=== PATIENT | male | born 1985 | race African-American/Black ===

== ENCOUNTER 2016-11-29 08:11 | Emergency (ER) | payer SELFPAY ==
[2016-11-29 08:36] VITALS: BP 156/67; PULSE 99; TEMP 98.1; BMI 41.5
--- NOTE | 2016-11-29 09:03 | EDPRACDOC ---
- General Information Chief Complaint: Wound Stated Complaint: FINGER SWELLING Time Seen by Provider: 11/29/16 08:53 Information Source: Patient Home Medications: Home Medications Cephalexin Monohydrate [Keflex] 500 mg PO QID #28 cap 11/29/16 Allergies/Adverse Reactions: Allergies Allergy/AdvReac Type Severity Reaction Status Date / Time No Known Allergies Allergy Verified 11/29/16 08:38 - History of Present Illness Onset: 2 DAYS HPI: Pt states he bites his finger nails and for 2 days his R 5th finger is red swollen and painful. R hand dominate. Denies fever, red streaking. Location: Reports: Right, 5th Finger Dominant Hand: Right Mechanism: Reports: Spontaneous Circumstances: Reports: Other (nail bitting) Tetanus Up To Date?: No Associated Signs & Symptoms: Reports: None ED Past Medical History - History Reviewed Yes Nurses notes reviewed and agree except as marked - Patient Medical History Psychological History: Denies: Depression - Social Medical History Smoking Status: Heavy tobacco smoker (5 or more cigarettes/day or daily pipe/ cigar) Social History: Reports: Cocaine Use, Marijuana Use ETOH: Social Substance Abuse: Illicit Drugs EDM Review of Systems - Review of Systems Constitutional: No Symptoms Reported. negative: Fever, Chills, Weakness, Fatigue, Loss of Appetite Respiratory: No Symptoms Reported. negative: Cough, Brassy Cough, Barky Cough, Shortness of Breath, Wheezing, Hemoptysis Cardiovascular: No Symptoms Reported. negative: Chest Pain, Palpitations, Syncope, Edema, Orthopnea, PND, Skin Mottling, Cyanosis Neurological: No Symptoms Reported. negative: Headache, Dizziness, Seizure, Numbness, Weakness, Speech Difficulty, Gait Difficulty Musculoskeletal: Other (finger) Integumentary: Wound Allergic/Immunologic: No Symptoms Reported. negative: Hives, Itching Hematologic: No Symptoms Reported. negative: Lymphadenopathy, Easy Bruising, Easy Bleeding Psychiatric: No Symptoms Reported. negative: Anxiety, Depression, Hallucinations, Insomnia, Suicidal - Physical Exam Constitutional: No apparent distress, Alert Oriented to: Time, Person, Place Last recorded Vital Signs: Last Vital Signs Temp 98.1 F 11/29/16 08:31 Pulse 99 11/29/16 08:31 Resp 20 11/29/16 08:31 BP 156/67 11/29/16 08:31 Pulse Ox 96 11/29/16 08:31 Oxygen Pulse Oxygen Saturation 96 O2 Device Oxygen Flow Rate Fraction of Inspired Oxygen ( FIO2) - HEENT Head: Normal ( normocephalic) - Respiratory/Cardiovascular Respiratory: Normal - CTA (BBS clear to auscultation without adventitious sounds ) Cardiovascular: Normal (RRR without murmur, gallop or rub) - Musculoskeletal Extremities: Normal (Normal tone, Pulses 2+ No cyanosis or edema, FROM) - Integumentary Skin: Normal, Warm, Dry Lymphatics: Normal (no adenopathy) - Neurologic Memory Impaired: Normal Motor Function: Normal (Normal tone, Pulses 2+ No cyanosis or edema, FROM) Mood Description: Normal Perception: Normal ED Hand Problem Physical Exam - Musculoskeletal Hand: Normal Wrist: Normal Digit: Swelling (5th distal finger R) Digit Strength: Normal Nail: Normal Nailbed: Normal Soft Tissue: Tender, Red, Swelling, Paronychia Distal Function/Circulation: Normal - Integumentary Skin: Swelling, Pustule, Red Lymphatics: Normal - Other Exam Hands Image: 1 - swelling, red with pustule ED Procedures - Incision and Drainage Informed of risks, benefits and alternatives described.: Yes Informed Consent Signed: Verbal Site: R 5th finger Indication: Other (paronychia) Anesthetic: Nothing Prep: Saline Blade Size: 11 Incised Site drained: Reports: Blood, Pus Incised site was: Not irrigated, Not Packed with Iodoform - Differential Diagnosis Paronychia Decision Time to Discharge: 09:04 - Departure Disposition: Home Condition: Good Final Diagnosis: Paronychia of right little finger Instructions: Paronychia (ED) Education/Counseling Given To: Patient Education/Counseling Given Regarding: Diagnosis, Treatment, Follow Up Referrals: None,No Provider [Primary Care Provider] - One Week Magno Ireland II, MD [Staff Physician] - One Week Prescriptions: New Cephalexin Monohydrate [Keflex] 500 mg PO QID #28 cap Additional Instructions: Keep wound clean and dry, apply warm compresses to affected area 20 mins at a time 4 - 5 times daily, return to the ED for any worsening symptoms or concerns. STOP BITING NAILS.
== END 2016-11-29 09:12 | disposition home or self-care (01) ==
LOC: ED 08:11
DX: L03.011 Cellulitis of right finger (principal); F17.200 Nicotine dependence, unspecified, uncomplicated; F14.10 Cocaine abuse, uncomplicated; F12.10 Cannabis abuse, uncomplicated
CPT/HCPCS: 26010; 99282